=== PATIENT | female | born 1980 | race Caucasian/White ===

== ENCOUNTER 2021-01-31 09:52 | Emergency (ER) | payer OTHER, SELFPAY ==
[2021-01-31 10:14] VITALS: BP 124/81; PULSE 64; RESP 15; TEMP 36.5; O2SAT 99; BMI 22.4
[2021-01-31 12:01] LABS: Basophils % 0.2 %; Eosinophils % 0.3 %; Hematocrit 42.3 % (37.0-47.0); Hemoglobin 14.1 g/dL (11.5-15.3); Lymphocytes % 10.2 %; Mean Corpuscular HGB Conc 33.3 g/dL (30.0-36.0); Mean Corpuscular Hemoglobin 32.9 pg (28.0-34.0); Mean Corpuscular Volume 98.8 fl (81-99); Mean Platelet Volume 11.1 fL (7.4-10.4); Monocytes # 0.6 10^3/uL (0.2-0.9); Monocytes % 6.5 %; Neutrophils # 7.65 10^3/uL (1.8-7.7); Neutrophils % 82.6 %; Nucleated Red Blood Cells % 0 %; Platelet Count 302 10^3/cmm (130-400); Red Blood Count 4.28 10^6/uL (4.1-5.3); Red Cell Distribution Width 11.9 % (12.1-15.1); White Blood Count 9.3 10^3/uL (4.0-10.0)
--- NOTE | 2021-01-31 12:13 | ED_ITS ---
HPI - Nausea/Vomiting/Diarrhea General: Chief complaint: Nausea/Vomiting/Diarrhea Stated complaint: NAUSEA/DIZZY/WEAK/RINGING IN EARS Time Seen by Provider: 01/31/21 11:33 History of Present Illness: HPI Narrative: 40-year-old female presents emergency room complaining of nausea dizziness and weakness, states it began about 4 days ago. She not really had any vomiting or diarrhea. She denies any dysuria urgency or frequency mild abdominal discomfort mostly epigastric right upper quadrant. States it began this morning to get much much worse after eating an egg davis biscuit. She is not previously associated with any particular foods. MD elicited complaint: nausea and abdominal pain Onset (ago): day(s) (4) Associated nausea: Yes Location of pain: Epigastric and RUQ Pain consistency: colicky Severity: mild Quality: cramping Exacerbating factors: eating Relieving factors: none Associated symtoms: Reports anorexia and nausea; Denies altered mental status, anxiety, bloating, change in vision, chest pain, cough, diaphoresis, decreased urine output, dizziness, dysuria, epistaxis, fatigue, fecal incontinence, fevers/chills, headache(s), malaise, myalgias, numbness, palpitations, rash, short of breath, syncope, tenesmus, tinnitus or weakness Review of Systems Const: Denies: fatigue, malaise or diaphoresis Eyes: Denies: change in vision ENMT: Denies: tinnitus or epistaxis Card: Denies: chest pain, palpitations or syncope Resp: Denies: dyspnea, productive cough or non-productive cough GI: Reports: nausea; Denies: bloating or fecal incontinence : Denies: dysuria Skin/Breast: Denies: rash or pruritus Neuro: Denies: headache(s) or dizziness Psych: Denies: anxiety Physical Exam Const: COMMON NORMALS: no acute distress EXAM LIMITATIONS: no altered mental status GENERAL APPEARANCE: cooperative and comfortable ORIENTATION/CONSCIOUSNESS: Yes awake, Yes oriented to person, Yes oriented to place and Yes oriented to time HENMT: COMMON NORMALS: normocephalic, atraumatic, hearing grossly normal bilaterally and external ears normal HEAD & SCALP: normocephalic and atraumatic EXTERNAL EAR: Yes external ears normal Neck/C-Spine: COMMON NORMALS: no JVD Resp: COMMON NORMALS: normal respiratory effort, No retractions, No use of accessory muscles and clear to auscultation bilaterally AUSCULTATION: clear to auscultation bilaterally Cardio: COMMON NORMALS: no JVD, regular rate, regular rhythm and No murmurs present (Cardio) RATE: regular rate RHYTHM: regular rhythm GI: COMMON NORMALS: Soft to palpation and No hepatosplenomegaly present AUSCULTATION: Yes normoactive bowel sounds PALPATION: Yes Soft to palpation, No Tenderness to palpation present (GI), No Guarding due to palpation present (GI) and Yes No hepatosplenomegaly present Extremity: COMMON NORMALS: normal to inspection, capillary refill normal, no clubbing, cyanosis or edema, no calf tenderness and no pedal edema Neuro: SENSORIUM/ORIENTATION: Yes oriented to person, Yes oriented to place and Yes oriented to time Skin: COMMON NORMALS: no rashes or lesions noted GENERAL SKIN EXAM: no rashes or lesions noted Course Vital Signs: Vital signs: Vital Signs Temperature 97.7 F 01/31/21 10:14 Pulse Rate 64 01/31/21 10:14 Respiratory Rate 15 01/31/21 10:14 Blood Pressure 126/75 01/31/21 15:00 Pulse Oximetry 99 01/31/21 15:00 MDM - Nausea/Vomiting/Diarrhea MDM Narrative: Medical decision making narrative: Labs and imaging reviewed on the chart and with the patient. She is somewhat better. Will complete the IV fluids recommend clear liquid diet for the next 24 to 48 hours can use Zofran as needed. Increase fluid intake return if has problems. Lab Data: Labs: Lab Results 01/31/21 01/31/21 01/31/21 11:54 11:54 12:43 WBC 9.3 10^3/uL 10^3/ uL (4.0-10.0) RBC 4.28 10^6/uL 10^6 /uL (4.1-5.3) Hgb 14.1 g/dL g/dL (11.5-15.3) Hct 42.3 % % (37.0-47.0) MCV 98.8 fl fl (81-99) MCH 32.9 pg pg (28.0-34.0) MCHC 33.3 g/dL g/dL (30.0-36.0) RDW 11.9 % L % (12.1-15.1) Plt Count 302 10^3/cmm 10^3 /cmm (130-400) MPV 11.1 fL H fL (7.4-10.4) Neut % (Auto) 82.6 % % Lymph % (Auto) 10.2 % % Petroleum % (Auto) 6.5 % % Eos % (Auto) 0.3 % % Baso % (Auto) 0.2 % % Neut # (Auto) 7.65 10^3/uL 10^3 /uL (1.8-7.7) Lymph # (Auto) 1.0 10^3/uL 10^3/ uL (0.8-4.8) Petroleum # (Auto) 0.6 10^3/uL 10^3/ uL (0.2-0.9) Eos # (Auto) 0.0 10^3/uL 10^3/ uL (0.0-0.8) Baso # (Auto) 0.0 10^3/uL 10^3/ uL (0.0-0.1) Nucleated RBC % (a uto) 0 % % Nucleated RBCs # 0.0 /100WBC /100W BC Sodium Cancelled 138 mmol/L mmol/L (136-145) Potassium Cancelled 4.1 mmol/L mmol/L (3.5-5.1) Chloride Cancelled 103 mmol/L mmol/L (98-107) Carbon Dioxide Cancelled 21 mmol/L L mmol/ L (22-29) Anion Gap Cancelled 18.1 (5-19) BUN Cancelled 7 mg/dL mg/dL (6-20) Creatinine Cancelled 0.5 mg/dL mg/dL (0.5-0.9) GFR Calculation Cancelled 136.6 mL/min H mL /min (90-130) Glucose Cancelled 82 mg/dL mg/dL (65-115) Calculated Osmolal ity Cancelled 283 mOsm/kg L mOs m/kg (285-295) Calcium Cancelled 9.1 mg/dL mg/dL (8.5-10.5) Total Bilirubin Cancelled 0.4 mg/dL mg/dL (0.15-1.2) AST Cancelled 15 U/L U/L (0-32) ALT Cancelled 12 U/L U/L (0-33) Alkaline Phosphata se Cancelled 66 IU/L IU/L (35-105) Creatine Kinase Cancelled 53 U/L U/L (26-192) Total Protein Cancelled 7.2 g/dL g/dL (6.6-8.7) Albumin Cancelled 4.3 g/dL g/dL (3.5-5.2) Globulin Cancelled 2.9 g/dL g/dL (1.3-4.6) Urine Color Urine Appearance Urine pH Ur Specific Gravit y Urine Protein Urine Glucose (UA) Urine Ketones Urine Blood Urine Nitrate Urine Bilirubin Urine Urobilinogen Ur Leukocyte Amy ase 01/31/21 13:25 WBC RBC Hgb Hct MCV MCH MCHC RDW Plt Count MPV Neut % (Auto) Lymph % (Auto) Petroleum % (Auto) Eos % (Auto) Baso % (Auto) Neut # (Auto) Lymph # (Auto) Petroleum # (Auto) Eos # (Auto) Baso # (Auto) Nucleated RBC % (a uto) Nucleated RBCs # Sodium Potassium Chloride Carbon Dioxide Anion Gap BUN Creatinine GFR Calculation Glucose Calculated Osmolal ity Calcium Total Bilirubin AST ALT Alkaline Phosphata se Creatine Kinase Total Protein Albumin Globulin Urine Color Yellow (Yellow) Urine Appearance Clear (CLEAR) Urine pH 5 (5-7) Ur Specific Gravit y 1.010 (1.005-1.030) Urine Protein Neg (Negative) Urine Glucose (UA) Norm (Normal) Urine Ketones Negative (Negative) Urine Blood Neg (Negative) Urine Nitrate Negative (Negative) Urine Bilirubin Neg (Negative) Urine Urobilinogen Norm mg/dL mg/dL (Negative) Ur Leukocyte Amy ase Negative (Negative) Discharge Plan Discharge Patient Disposition: Home Clinical Impression: Nausea & vomiting Condition: Stable Prescriptions: New Zofran 4 mg tablet 4 mg PO Q6H PRN (Reason: nausea and vomiting) Qty: 20 RF: 0 No Action Flonase 50 mcg/actuation [place],Suspension 2 spray INTRANASAL DAILY PRN (Reason: Allergy Symptoms) RF: 0 Mucinex 600 mg Tablet Extended Release 12hr 600 mg PO Q12H PRN (Reason: Congestion) RF: 0 Discharge Orders: Discharge ED (Routine); Ordered 01/31/21 Ordered By: Donny Davis Discharge Diet: Clear Liquid Discharge Activity: Increase activity as tolerated Patient Instructions: Opioid Safety Activity Restrictions/Additional Instructions: Clear liquid diet for 24 to 48 hours advance as tolerated. Coding Level of Care Code ED Spin Tank Tender for Chg Fwd Exam Comprehensive
[2021-01-31 13:33] LABS: Add Urine Microscopic? NO; Charge for UA Resulting for Rev
[2021-01-31 13:37] LABS: Bilirubin Urine Neg (Negative); Blood Urine Neg (Negative); Glucose Urine UA Norm (Normal); Ketones Urine Negative (Negative); Leukocyte Esterase Urine Negative (Negative); Nitrate Urine Negative (Negative); Protein Urine Neg (Negative); Urine Appearance Clear (CLEAR); Urine Color Yellow (Yellow); Urobilinogen Urine Norm (Negative); pH Urine 5 (5-7)
[2021-01-31 13:42] LABS: Alanine Aminotransferase 12 U/L (0-33); Albumin Level 4.3 g/dL (3.5-5.2); Alkaline Phosphatase 66 IU/L (35-105); Blood Urea Nitrogen 7 mg/dL (6-20); Calcium 9.1 mg/dL (8.5-10.5); Carbon Dioxide 21 mmol/L (22-29); Chloride 103 mmol/L (98-107); Creatine Phosphokinase 53 U/L (26-192); Creatinine Clr Calc Pharmacy 138.5831; Globulin 2.9 g/dL (1.3-4.6); Glomerular Filtration Rate 136.6 mL/min (90-130); Glucose 82 mg/dL (65-115); Osmolality Calculated 283 mOsm/kg (285-295); Sodium 138 mmol/L (136-145); Total Bilirubin 0.4 mg/dL (0.15-1.2); Total Protein 7.2 g/dL (6.6-8.7)
[2021-01-31 13:43] VITALS: BP 131/64; O2SAT 96
[2021-01-31 13:44] LABS: Anion Gap 18.1 (5-19); Aspartate Amino Transferase 15 U/L (0-32); Potassium 4.1 mmol/L (3.5-5.1)
[2021-01-31] MEDS: ondansetron 2 mg/ML SDV 2 mL 4 MG IVP (13:45)
[2021-01-31 14:00] VITALS: BP 126/75; O2SAT 100
[2021-01-31] MEDS: sodium chloride 0.9% 1,000 ML 999 ML IV (14:22)
[2021-01-31 15:00] VITALS: BP 126/75; O2SAT 99
== END 2021-01-31 15:08 | disposition home or self-care (01) ==
PROVIDERS: Emergency Provider Family Medicine
DX: R11.2 Nausea with vomiting, unspecified (principal)
CPT/HCPCS: 80053; 81003; 82550; 85025; 96374; 99283; J2405; J7030

== ENCOUNTER 2024-01-09 10:14 | Outpatient (CLI) | payer MEDICAID, SELFPAY ==
--- NOTE | 2024-01-09 10:15 | MM_ITS ---
WS: [id number] BILATERAL SCREENING DIGITAL TOMOSYNTHESIS MAMMOGRAM WITH CAD HISTORY: SCREENING COMPARISON: None available. Bilateral CC and MLO views with tomosynthesis and synthetic mammography submitted. Computer aided det ection analyzed. Breast composition: The breasts are heterogeneously dense, which may obscure small masses. No suspici ous masses, microcalcifications or architectural distortion. Scattered areas of increased density thr oughout each breast. No distortion. MM/MM [facility] tomosynthesis [id number] IMPRESSION: BI-RADS: 2 - Benign FOLLOW UP: 1 Year Follow-up
== END 2024-01-09 10:15 | disposition home or self-care (01) ==
LOC: RAD 10:16
PROVIDERS: PCP Family Medicine; Visit Provider Family Medicine
DX: Z12.31 Encounter for screening mammogram for malignant neoplasm of breast (principal); R92.333 Mammographic heterogeneous density, bilateral breasts
CPT/HCPCS: 77063; 77067

== ENCOUNTER 2024-05-05 19:52 | Emergency (ER) | payer MEDICAID, SELFPAY ==
[2024-05-05 20:14] VITALS: BP 129/69; PULSE 63; RESP 18; TEMP 36.7; O2SAT 100; BMI 28.3
--- NOTE | 2024-05-05 20:20 | ED_ITS ---
HPI - Extremity Problem General: Chief complaint: Extremity Injury, Upper Stated complaint: R middle finger lac Time Seen by Provider: 05/05/24 20:13 Source: patient Mode of arrival: ambulatory Limitations: no limitations History of Present Illness: 44-year-old female who states that she w as using a slicer cut sweet potatoes states she excellently sliced her right middle finger. She has bleeding co ntrolled denies any other injuries she just cut a very small portion of the very distal tip of her finger off. Basically just the pad no nail involvement she has pain she rates a 4 out of 10 she is unsure when her last tetanus was. Associated symptoms: Deny chest pain, fever(s) or rash Related Data Home Medications ?Medication ?Instructions ?Recorded ?Confirmed fluticasone propionate 50 2 spray intranasal DAILY PRN 01/31/21 01/31/21 mcg/actuation nasal Allergy Symptoms spray,suspension guaifenesin 600 mg tablet, 600 mg PO Q12H PRN [place] on 01/31/21 01/31/21 extended release 12 hr (Mucinex) Previous Rx's ?Medication ?Instructions ?Recorded ondansetron HCl 4 mg tablet 4 mg PO Q6H PRN nausea and 01/31/21 (Zofran) vomiting #20 tabs Allergies Allergy/AdvReac Type Severity Reaction Status Date / Time No Known Allergies Allergy Verified 05/05/24 20:17 Review of Systems Const: Denies: fever(s), chills, body aches or change in appetite ENMT: Denies: throat pain or dental pain Card: Denies: chest pain Resp: Denies: dyspnea GI: Denies: abdominal pain, nausea, vomiting or diarrhea Musc: Reports: extremity pain; Denies: neck pain or back pain Skin/Breast: Denies: rash Neuro: Denies: headache(s) [facility] Female Reproductive History: Date of last menstrual period: 05/05/24 Physical Exam Const: COMMON NORMALS: no acute distress, patient oriented x3 and healthy appearing HENMT: COMMON NORMALS: normocephalic and atraumatic HEAD & SCALP: normocephalic and atraumatic Neck/C-Spine: COMMON NORMALS: full ROM and supple Chest: COMMONS NORMALS: normal inspection of the chest Resp: COMMON NORMALS: normal respiratory effort, No retractions, No use of accessory muscles and clear to auscultation bilaterally AUSCULTATION: clear to auscultation bilaterally Cardio: COMMON NORMALS: regular rate RATE: regular rate Extremity: NARRATIVE EXTREMITY EXAM: Laceration to the very distal tip of right middle finger small [place] laceration from slicer where the very distal tip is just shaved off at the pad Neuro: COMMON NORMALS: patient oriented x3, moves all extremities and no focal motor deficits Psych: COMMON NORMALS: mental status grossly normal, Normal thought process present and cooperative THOUGHT PROCESS: Normal thought process present Skin: COMMON NORMALS: no rashes or lesions noted GENERAL SKIN EXAM: no rashes or lesions noted Course Vital Signs: Vital signs: Vital Signs Temperature 98.0 F 05/05/24 20:14 Pulse Rate 63 05/05/24 20:14 Respiratory Rate 18 05/05/24 20:14 Blood Pressure 129/69 05/05/24 20:14 Pulse Oximetry 100 05/05/24 20:14 Oxygen Delivery Me thod Room Air 05/05/24 20:14 MDM - Extremity (Nontraumatic) Medical Decision Making Patient presents here with a laceration to the very distal tip of her right middle finger is not able to be repaired superficial nature should heal on its own and she is to keep a Band-Aid over did give her tetanus she is to follow-up with PCP return if worsening. Medical Records I reviewed the patient's medical records. No radiology studies performed this visit Discharge Plan Discharge Patient Disposition: Home Clinical Impression: Finger laceration Condition: Stable Prescriptions: No Action Flonase 50 mcg/actuation [place],Suspension 2 spray INTRANASAL DAILY PRN (Reason: Allergy Symptoms) Mucinex 600 mg Tablet Extended Release 12hr 600 mg PO Q12H PRN (Reason: Congestion) Zofran 4 mg tablet 4 mg PO Q6H PRN (Reason: nausea and vomiting) Qty: 20 0RF Discharge Orders: Discharge ED (Routine); Ordered 05/05/24 Ordered By: Kevin Chua Referrals: Jayla Sparrow DO [Primary Care Provider] - Discharge Diet: Advance as tolerated Discharge Activity: Resume usual activity Patient Instructions: Laceration Without Closure (ED) Print Language: Ukrainian Coding Level of Care Code ED Drawing Frame Tender for Ofelia Langley
[2024-05-05] MEDS: tetanus-dipt-pertussis 0.5 mL SDV IM (20:30)
[2024-05-05] MEDS: neomycin-poly-bacitracin oint 0.9 gm Pkt 1 APPLIC TOPICAL (20:30)
[2024-05-05 20:32] VITALS: BP 129/69; PULSE 63; O2SAT 100
== END 2024-05-05 20:33 | disposition home or self-care (01) ==
PROVIDERS: Emergency Provider Emergency Medicine; PCP Family Medicine
DX: S61.212A Laceration without foreign body of right middle finger without damage to nail, initial encounter (principal); W26.8XXA Contact with other sharp object(s), not elsewhere classified, initial encounter; Z23 Encounter for immunization
CPT/HCPCS: 90471; 90715; 99283